=== PATIENT | female | born 1985 | race American Indian/Alaskan Native ===

== ENCOUNTER 2019-12-14 06:23 | Observation (INO) | payer OTHER ==
[2019-12-14] MEDS ORDERED: LORazepam 2 MG/ML VIAL IV ONE (06:47)
[2019-12-14] MEDS ORDERED: LORazepam 2 MG/ML VIAL ONE (06:47)
--- NOTE | 2019-12-14 07:27 | Cat Scan Report ---
CT head/brain without contrast. INDICATION: Stroke symptoms. TECHNIQUE: All CT scans at this location are performed using the following dose modulation technique: Automated exposure control. CONTRAST: None. COMPARISON: None available. FINDINGS: The ventricular system is appropriate in size and configuration without midline shift. Nega tive for acute stroke, mass or hemorrhage. There are mild changes of chronic small vessel ischemia. C hronic white matter infarcts are seen at the external capsule and madrid radiata on the left. Imaged portions of the paranasal sinuses are clear. IMPRESSION: 1. No acute abnormality. 2. Chronic left-sided white matter infarcts. CODE STROKE: Time of Communication (ELECTRIC METER TESTER SHOP/CDT): 6:20 AM Central standard time Licensed Practitioner Receiving Report: Dr. Jessica Signer Name: Kiet Barber MD Signed: 12/14/2019 7:23 AM Workstation Name: [id number]
--- NOTE | 2019-12-14 07:44 | Consultation ---
History of Present Illness - Reason for Consult Consult date: 12/14/19 Requesting physician: RASHEL ANGEL - History of Present Illness [facility] Tele[facility]urology Consult Services Date of Service: 12/14/2019 06:47:54 Impression: Rule Out Acute Ischemic Stroke hyperglycemia, recent seizure and hypertensive emergency r/o lacunar stroke Comments/Sign-Out: 34yo W w pmh of htn, dm, hx of epilepsy, hx of stroke (unknown if on asa, plavix or blood thinners) who presents with slurred speech and seizure activity (witnessed) for which she received ativan 2mg. Glucose > 500. Slurred speech in the setting of hyperglycemia, recent seizure and hypertensive emergency r/o lacunar stroke Mechanism of Stroke: Possible Thromboembolic Possible Cardioembolic Small Vessel Disease Watershed Infarct Not Clear Metrics: Last Known Well: 12/12/2019 00:00:00 [facility] Notification Time: 12/14/2019 06:47:30 Arrival Time: 12/14/2019 06:35:00 Stamp Time: 12/14/2019 06:47:54 Time First Login Attempt: 12/14/2019 06:53:16 Video Start Time: 12/14/2019 06:53:16 Symptoms: slurred speech NIHSS Start Assessment Time: 12/14/2019 07:24:00 Patient is not a candidate for Alteplase/Activase. Patient was not deemed candidate for Alteplase/Activase thrombolytics because of Last Well Known Above 4.5 Hours. Video End Time: 12/14/2019 07:38:24 CT head showed no acute hemorrhage or acute core infarct. CT head was reviewed and results were: chronic L CR/ stroke Clinical Presentation is not Suggestive of Large Vessel Occlusive Disease ED Physician notified of diagnostic impression and management plan on 12/14/2019 07:39:05 Our recommendations are outlined below. Recommendations: Activate Stroke Protocol Admission/Order Set Stroke/Telemetry Floor Neuro Checks Bedside Swallow Eval DVT Prophylaxis IV Fluids, Normal Saline Head of Bed 30 Degrees Euglycemia and Avoid Hyperthermia (PRN Acetaminophen) Antiplatelet Therapy Recommended Initiate Aspirin 325 MG Daily Routine Consultation with Inhouse Neurology for Follow up Care Sign Out: Discussed with Emergency Department Provider History of Present Illness: Patient is a 34 year old Female. Patient was brought by private transportation with symptoms of slurred speech 34yo W w pmh of htn, dm, hx of epilepsy, hx of stroke (unknown if on asa, plavix or blood thinners) who presents with slurred speech and seizure activity (witnessed) for which she received ativan 2mg. She was last normal on Sun when she developed slurred speech. Past Medical History: Hypertension Stroke Examination: 1A: Level of Consciousness - Requires repeated stimulation to arouse + 2 1B: Ask Month and Age - Could Not Answer Either Question Correctly + 2 1C: Blink Eyes & Squeeze Hands - Performs 1 Task + 1 2: Test Horizontal Extraocular Movements - Normal + 0 3: Test Visual Patel - Bilateral Hemianopia + 3 4: Test Facial Palsy (Use Grimace if Obtunded) - Minor paralysis (flat nasolabial fold, smile asymmetry) + 1 5A: Test Left Arm Motor Drift - Drift, but doesn't hit bed + 1 5B: Test Right Arm Motor Drift - Drift, but doesn't hit bed + 1 6A: Test Left Leg Motor Drift - Drift, but doesn't hit bed + 1 6B: Test Right Leg Motor Drift - Some Effort Against Congers + 2 7: Test Limb Ataxia (FNF/Heel-Marsh) - No Ataxia + 0 8: Test Sensation - Mild-Moderate Loss: Less Sharp/More Dull + 1 9: Test Language/Aphasia - Normal; No aphasia + 0 10: Test Dysarthria - Severe Dysarthria: Unintelligble Slurring or Out of Proportion to Aphasia + 2 11: Test Extinction/Inattention - No abnormality + 0 NIHSS Score: 17 Patient/Family was informed the Neurology Consult would happen via TeleHealth consult by way of interactive audio and video telecommunications and consented to receiving care in this manner. Due to the immediate potential for life-threatening deterioration due to underlying acute neurologic illness, I spent 35 minutes providing critical care. This time includes time for face to face visit via telemedicine, review of medical records, imaging studies and discussion of findings with providers, the patient and/or family. Dr Cata Lopez [facility] Case [id number] Medications and Allergies Allergies Allergy/AdvReac Type Severity Reaction Status Date / Time amoxicillin Allergy Itching Verified 12/14/19 06:44 Home Medications Medication Instructions Recorded Confirmed Last Taken Type Aspirin EC 325 mg PO DAILY 12/14/19 12/14/19 Unknown History HCTZ 25 mg PO DAILY 12/14/19 12/14/19 Unknown History amLODIPine 10 mg PO DAILY 12/14/19 12/14/19 Unknown History hydrALAZINE 50 mg PO TID 12/14/19 12/14/19 Unknown History lisinopriL 20 mg PO DAILY 12/14/19 12/14/19 Unknown History Exam - Constitutional Vitals: Temp Pulse Resp BP Pulse Ox 98.8 F 92 H 18 199/123 99 12/14/19 06:27 12/14/19 06:27 12/14/19 06:27 12/14/19 06:27 12/14/19 06:27 Results - Labs Labs: Abnormal lab results 12/14/19 Range/Units 07:05 POC Glucose > 500 H (70-105)
[2019-12-14 07:45] LABS: Basophils # (Auto) 0.1 K/mm3 (0.0-0.1); Basophils % (Auto) 1.1 % (0.0-1.8); Eosinophils # (Auto) 0.1 K/mm3 (0.0-0.4); Eosinophils % (Auto) 2.6 % (0.0-4.3); Hematocrit 33.1 % (30.3-42.9); Hemoglobin 10.6 gm/dl (10.1-14.3); Lymphocytes # (Auto) 1.4 K/mm3 (1.2-5.4); Lymphocytes % (Auto) 23.5 % (13.4-35.0); Mean Corpuscular HGB Conc 32 % (30-34); Mean Corpuscular Volume 79 fl (79-97); Monocytes # (Auto) 0.5 K/mm3 (0.0-0.8); Monocytes % (Auto) 8.3 % (0.0-7.3); Platelet Count 225 K/mm3 (140-440); Red Blood Count 4.19 M/mm3 (3.65-5.03); Red Cell Distribution Width 15.9 % (13.2-15.2)
--- NOTE | 2019-12-14 07:56 | XRay Report ---
CHEST 1 VIEW INDICATION: Stroke. COMPARISON: None. FINDINGS: Support devices: None. Heart: Mild cardiac enlargement. Lungs/Pleura: Lung volumes are mildly diminished. Additional findings: None. IMPRESSION: Cardiomegaly with mildly diminished lung volumes. Signer Name: Kiet Barber MD Signed: 12/14/2019 7:52 AM Workstation Name: [id number]
[2019-12-14 07:57] LABS: Creatine Kinase MB 1.5 ng/mL (0.0-4.0)
[2019-12-14 07:58] LABS: BUN/Creatinine Ratio 11; Blood Urea Nitrogen 18 mg/dL (7-17); Calcium 9.5 mg/dL (8.4-10.2); Hemolysis Index 7; INR 1.08 (0.87-1.13); Partial Thromboplastin Time 25.1 Sec. (24.2-36.6); Thrombin Time 16.4 Sec. (15.1-19.6)
[2019-12-14] MEDS ORDERED: INSULIN REGULAR, HUMAN 100 UNIT/ML 3ML VIAL IV ONE (08:21)
[2019-12-14] MEDS ORDERED: SODIUM CHLORIDE 0.9% 1000 ML 1,000 ML IV ONE (08:22)
--- NOTE | 2019-12-14 08:25 | Emergency Department Report ---
ED Neuro Deficit HPI - General Chief Complaint: Altered Mental Status Stated Complaint: AMS Time Seen by Provider: 12/14/19 06:46 Source: patient Mode of arrival: Ambulatory Limitations: No Limitations - History of Present Illness Initial Comments: Patient is 34 years old female with history of hypertension, diabetes, CVA and seizure. Patient brought to the emergency room by her for evaluation of altered mental status and slurred speech. Patient stated that symptoms started Sunday night but is getting worse now. Upon evaluation in the emergency room patient started seizing. Patient given 2 mg of Ativan and reported her seizure. Code stroke initiated and patient moved to CT for stat CT brain. Stroke tele-neurology consulted and patient examined by Dr. Lopez, she advised patient is not a TPA candidate or thrombectomy candidate however she advised to admit the patient for stroke work-up. -: Sudden, days(s) (12/12/2019) Location: speech Presenting Symptoms: Present: Unable to Speak Clearly Place: home Context: sudden onset - Related Data Home Medications: Home Medications Medication Instructions Recorded Confirmed Last Taken Aspirin EC 325 mg PO DAILY 12/14/19 12/14/19 Unknown HCTZ 25 mg PO DAILY 12/14/19 12/14/19 Unknown amLODIPine 10 mg PO DAILY 12/14/19 12/14/19 Unknown hydrALAZINE 50 mg PO TID 12/14/19 12/14/19 Unknown lisinopriL 20 mg PO DAILY 12/14/19 12/14/19 Unknown Allergies/Adverse Reactions: Allergies Allergy/AdvReac Type Severity Reaction Status Date / Time amoxicillin Allergy Itching Verified 12/14/19 06:44 ED Review of Systems ROS: Stated complaint: AMS Other details as noted in HPI Comment: All other systems reviewed and negative Constitutional: denies: chills, fever Respiratory: denies: cough, shortness of breath, SOB with exertion Cardiovascular: denies: chest pain, palpitations Gastrointestinal: denies: abdominal pain, nausea, vomiting, diarrhea, constipation, hematemesis, melena, hematochezia Musculoskeletal: denies: back pain Neurological: confusion. denies: headache, weakness, numbness, paresthesias, abnormal gait ED Past Medical Hx - Past Medical History Previous Medical History?: Yes Hx Hypertension: Yes Hx CVA: Yes Hx Diabetes: Yes Hx Seizures: Yes - Surgical History Past Surgical History?: Yes Additional Surgical History: - Social History Smoking Status: Never Smoker Substance Use Type: None - Medications Home Medications: Home Medications Medication Instructions Recorded Confirmed Last Taken Type Aspirin EC 325 mg PO DAILY 12/14/19 12/14/19 Unknown History HCTZ 25 mg PO DAILY 12/14/19 12/14/19 Unknown History amLODIPine 10 mg PO DAILY 12/14/19 12/14/19 Unknown History hydrALAZINE 50 mg PO TID 12/14/19 12/14/19 Unknown History lisinopriL 20 mg PO DAILY 12/14/19 12/14/19 Unknown History ED Neuro Physical Exam - General Limitations: No Limitations General appearance: alert, in no apparent distress Suspected Stroke: Yes - Head Head exam: Present: atraumatic, normocephalic, normal inspection - Eye Eye exam: Present: normal appearance, PERRL - ENT ENT exam: Present: mucous membranes dry - Neck Neck exam: Present: normal inspection, full ROM. Absent: tenderness, meningismus, lymphadenopathy, thyromegaly - Respiratory Respiratory exam: Present: normal lung sounds bilaterally - Cardiovascular Cardiovascular Exam: Present: regular rate, normal rhythm, normal heart sounds - GI/Abdominal GI/Abdominal exam: Present: soft, normal bowel sounds. Absent: distended, t enderness, guarding, rebound, rigid, organomegaly, mass, bruit, pulsatile mass, hernia - Extremities Exam Extremities exam: Present: normal inspection, full ROM, normal capillary refill - Back Exam Back exam: Present: normal inspection, full ROM. Absent: CVA tenderness (R), CVA tenderness (L) - Neurological Exam Neurological exam: Present: alert, altered - NIHSS Assessment Interval: Baseline 1a. Level of Consciousness: arousable/minor stimuli 1b. LOC Questions: answers no questions correctly 1c. LOC Commands: performs no tasks correctly 2. Best Gaze: normal 3. Visual: bilateral hemianopia 4. Facial Palsy: minor paralysis 5b. Motor Arm Right: drift 5a. Motor Arm Left: drift 6a. Motor Leg Left: drift 6b. Motor Leg Right: drift 7. Limb Ataxia: absent 8. Sensory: coma/unresponsive 9. Best Language: mild/moderate aphasia 10. Dysarthria: mild/moderate dysarthria 11. Extinction/Inattention: no abnormality Total Score: 17 Stroke Severity: Moderate to Severe Stroke - Skin Skin exam: Present: warm, intact, normal color ED Course Vital Signs 12/14/19 12/14/19 12/14/19 06:27 07:00 08:04 Temperature 98.8 F Pulse Rate 92 H 80 67 Respiratory 18 20 17 Rate Blood Pressure 199/123 Blood Pressure 165/104 [Left] O2 Sat by Pulse 99 99 100 Oximetry 12/14/19 12/14/19 12/14/19 08:15 08:30 08:45 Temperature Pulse Rate 71 62 68 Respiratory 17 19 21 Rate Blood Pressure 149/94 151/107 Blood Pressure [Left] O2 Sat by Pulse 98 100 100 Oximetry 12/14/19 12/14/19 12/14/19 08:46 09:01 09:15 Temperature Pulse Rate 76 66 Respiratory 18 15 19 Rate Blood Pressure 187/109 187/109 Blood Pressure [Left] O2 Sat by Pulse 99 100 100 Oximetry 12/14/19 12/14/19 12/14/19 09:31 09:45 10:01 Temperature Pulse Rate 61 83 62 Respiratory 18 14 18 Rate Blood Pressure 157/95 157/95 153/102 Blood Pressure [Left] O2 Sat by Pulse 91 100 100 Oximetry - Lab Data Result diagrams: 12/14/19 07:18 12/14/19 07:18 Lab Results 12/14/19 12/14/19 12/14/19 Range/Units 07:05 07:18 07:18 WBC 5.8 (4.5-11.0) K/mm3 RBC 4.19 (3.65-5.03) M/mm3 Hgb 10.6 (10.1-14.3) gm/dl Hct 33.1 (30.3-42.9) % MCV 79 (79-97) fl MCH 25 L (28-32) pg MCHC 32 (30-34) % RDW 15.9 H (13.2-15.2) % Plt Count 225 (140-440) K/mm3 Lymph % (Auto) 23.5 (13.4-35.0) % [place] % (Auto) 8.3 H (0.0-7.3) % Eos % (Auto) 2.6 (0.0-4.3) % Baso % (Auto) 1.1 (0.0-1.8) % Lymph # 1.4 (1.2-5.4) K/mm3 [place] # 0.5 (0.0-0.8) K/mm3 Eos # 0.1 (0.0-0.4) K/mm3 Baso # 0.1 (0.0-0.1) K/mm3 Seg Neutrophils % 64.5 (40.0-70.0) % Seg Neutrophils # 3.8 (1.8-7.7) K/mm3 PT 14.1 (12.2-14.9) Sec. INR 1.08 (0.87-1.13) APTT 25.1 (24.2-36.6) Sec. Thrombin Time 16.4 (15.1-19.6) Sec. Sodium (137-145) mmol/L Potassium (3.6-5.0) mmol/L Chloride (98-107) mmol/L Carbon Dioxide (22-30) mmol/L Anion Gap mmol/L BUN (7-17) mg/dL Creatinine (0.6-1.2) mg/dL Estimated GFR ml/min BUN/Creatinine Ratio % Glucose (65-100) mg/dL POC Glucose > 500 H (70-105) Calcium (8.4-10.2) mg/dL Total Creatine Kinase (30-135) units/L CK-MB (CK-2) (0.0-4.0) ng/mL CK-MB (CK-2) Rel Index (0-4) Troponin T (0.00-0.029) ng/mL Plasma/Serum Alcohol (0-0.07) % 12/14/19 12/14/19 12/14/19 Range/Units 07:18 07:18 09:52 WBC (4.5-11.0) K/mm3 RBC (3.65-5.03) M/mm3 Hgb (10.1-14.3) gm/dl Hct (30.3-42.9) % MCV (79-97) fl MCH (28-32) pg MCHC (30-34) % RDW (13.2-15.2) % Plt Count (140-440) K/mm3 Lymph % (Auto) (13.4-35.0) % [place] % (Auto) (0.0-7.3) % Eos % (Auto) (0.0-4.3) % Baso % (Auto) (0.0-1.8) % Lymph # (1.2-5.4) K/mm3 [place] # (0.0-0.8) K/mm3 Eos # (0.0-0.4) K/mm3 Baso # (0.0-0.1) K/mm3 Seg Neutrophils % (40.0-70.0) % Seg Neutrophils # (1.8-7.7) K/mm3 PT (12.2-14.9) Sec. INR (0.87-1.13) APTT (24.2-36.6) Sec. Thrombin Time (15.1-19.6) Sec. Sodium 129 L (137-145) mmol/L Potassium 3.5 L (3.6-5.0) mmol/L Chloride 91.9 L (98-107) mmol/L Carbon Dioxide 19 L (22-30) mmol/L Anion Gap 22 mmol/L BUN 18 H (7-17) mg/dL Creatinine 1.6 H (0.6-1.2) mg/dL Estimated GFR 37 ml/min BUN/Creatinine Ratio 11 % Glucose 751 H* (65-100) mg/dL POC Glucose > 500 H (70-105) Calcium 9.5 (8.4-10.2) mg/dL Total Creatine Kinase 297 H (30-135) units/L CK-MB (CK-2) 1.5 (0.0-4.0) ng/mL CK-MB (CK-2) Rel Index 0.5 (0-4) Troponin T < 0.010 (0.00-0.029) ng/mL Plasma/Serum Alcohol < 0.01 (0-0.07) % - EKG Data -: EKG Interpreted by In EKG shows normal: sinus rhythm Rate: normal Interpretation: no acute changes - Radiology Data Radiology results: report reviewed - Medical Decision Making Patient is 34 years old female with history of hypertension, diabetes, CVA and seizure. Patient brought to the emergency room by her for evaluation of altered mental status and slurred speech. Patient stated that symptoms started Oziel night but is getting worse now. Upon evaluation in the em ergency room patient started seizing. Patient given 2 mg of Ativan and reported her seizure. Code stroke initiated and patient moved to CT for stat CT brain. Stroke tele-neurology consulted and patient examined by Dr. Lopez, she advised patient is not a TPA candidate or thrombectomy candidate however she advised to admit the patient for stroke work-up. No seizure activity is observed after 2 mg of Ativan. Labs reviewed and showed a blood glucose of 750 with anion gap of 22. Patient started on normal saline and insulin. I discussed the patient with Dr. Barreto, he advised to admit the patient to Dr. Escamilla. Critical Care Time: Yes Critical care time in (mins) excluding proc time.: 30 Critical care attestation.: If time is entered above; I have spent that time in minutes in the direct care of this critically ill patient, excluding procedure time. ED Disposition Clinical Impression: CVA (cerebral vascular accident), Seizure, Acute hyperglycemia Disposition: -09 OP ADMIT IP TO THIS HOSP Is pt being admited?: Yes Condition: Stable
[2019-12-14] MEDS ORDERED: levETIRAcetam 1000 MG/NS 0.75% 1,000 MG/100 ML BAG IV ONE (09:20)
[2019-12-14 10:52] LABS: Bacteria,Urine 1+ /HPF (Negative); Bilirubin,Urine NEG (Negative); Blood,Urine LG (Negative); Color,Urine Straw (Yellow); Mucus,Urine FEW /HPF; Protein,Urine <15 mg/dL mg/dL (Negative); Urobilinogen,Urine < 2.0 mg/dL (<2.0)
[2019-12-14 10:55] LABS: RBC,Urine > 6.0 /HPF (0.0-6.0)
[2019-12-14 10:59] LABS: Amphetamine Screen,Urine PRESUMPTIVE NEGATIVE; Benzodiazepines Screen,Urine PRESUMPTIVE NEGATIVE; Cannabinoid Screen,Urine PRESUMPTIVE NEGATIVE; Cocaine Screen,Urine PRESUMPTIVE NEGATIVE; Methadone Screen,Urine PRESUMPTIVE NEGATIVE; Opiate Screen,Urine PRESUMPTIVE NEGATIVE
[2019-12-14 12:03] LABS: Calcium 9.3 mg/dL (8.4-10.2)
[2019-12-14] MEDS: INSULIN REGULAR, HUMAN 100 UNITS in SODIUM CHLORIDE 0.9% 99 ML IV SCH (12:31)
--- NOTE | 2019-12-14 13:11 | History and Physical Report ---
History of Present Illness Date of examination: 12/14/19 Date of admission: 12/14/19 10:08 Chief complaint: Slurred speech and weakness seizure, very high blood sugars History of present illness: 34 years old female patient with significant past medical history of h ypertension, diabetes, CVA and seizure. Patient brought to the emergency room by her for evaluation of altered mental status and slurred speech. Patient stated that symptoms started Sunday night but is getting worse now. Upon evaluation in the emergency room patient started seizing. Patient given 2 mg of Ativan and with improvement of seizures code stroke initiated and patient moved to CT for stat CT brain. Stroke tele- neurology consulted and patient examined by Dr. Lopez, she advised patient is not a TPA candidate or thrombectomy candidate however she advised to admit the patient for stroke work-up. Patient had history of twitching the left face and drooling on Sunday patient went to [facility] however left AGAINST MEDICAL ADVICE Patient denied any headache or dizziness, complains of generalized weakness Initial work-up in the emergency room CT scan No acute abnormality, chronic left-sided white matter infarcts Patient received loading dose of Keppra in the ER Denies chest pain or shortness of breath Denies fever, or any sick contacts Denies nausea vomiting or abdominal pain Patient initial work-up is consistent with very high blood sugars of more than 700, and hyperosmolar hyperglycemia Patient received IV insulin, with very minimal improvement. Patient was started on insulin drip per protocol and aggressive IV hydration Closely monitor the electrolytes and corrected as needed Past History Past Medical History: hypertension, seizures, stroke Past Surgical History: Social history: denies: smoking, alcohol abuse, prescription drug abuse Family history: no significant family history Medications and Allergies Allergies Allergy/AdvReac Type Severity Reaction Status Date / Time amoxicillin Allergy Itching Verified 12/14/19 06:44 Home Medications Medication Instructions Recorded Confirmed Last Taken Type Aspirin EC 325 mg PO DAILY 12/14/19 12/14/19 Unknown History HCTZ 25 mg PO DAILY 12/14/19 12/14/19 Unknown History amLODIPine 10 mg PO DAILY 12/14/19 12/14/19 Unknown History hydrALAZINE 50 mg PO TID 12/14/19 12/14/19 Unknown History lisinopriL 20 mg PO DAILY 12/14/19 12/14/19 Unknown History Active Meds: Active Medications Insulin Human Regular 100 (units/ Sodium Chloride) 100 mls @ 1 mls/hr IV TITR CRUZITO; Protocol Last Admin: 12/14/19 12:31 Dose: 8 units/hr, 8 mls/hr Documented by: Review of Systems Constitutional: weakness, no weight loss, no weight gain, no fever, no chills Ears, nose, mouth and throat: no nasal congestion, no nasal discharge Cardiovascular: no chest pain, no orthopnea, no palpitations, no lightheadedness, no shortness of breath Respiratory: no cough, no shortness of breath Gastrointestinal: no abdominal pain, no nausea, no vomiting Genitourinary Female: no pelvic pain, no dysuria Musculoskeletal: no myalgias, no arthritis Integumentary: no rash, no lesions Neurological: weakness, seizures, other (Twitching left face) Psychiatric: no anxiety, no depression Endocrine: no cold intolerance, no heat intolerance, no polyphagia, no polydipsia, no polyuria Hematologic/Lymphatic: no easy bruising, no easy bleeding Allergic/Immunologic: no urticaria, no allergic rhinitis Exam - Constitutional Vitals: Temp Pulse Resp BP Pulse Ox 98.8 F 65 19 153/102 99 12/14/19 06:27 12/14/19 10:45 12/14/19 10:45 12/14/19 10:45 12/14/19 10:45 General appearance: Present: no acute distress, well-nourished - EENT Eyes: Present: PERRL, EOM intact - Neck Neck: Present: supple, enlarged thyroid - Respiratory Respiratory effort: normal Respiratory: bilateral: diminished, negative: rales, rhonchi, wheezing - Cardiovascular Rhythm: regular Heart Sounds: Present: S1 & S2 - Extremities Extremities: no ischemia, No edema - Abdominal General gastrointestinal: Present: soft, non-tender, non-distended, normal bowel sounds - Integumentary Integumentary: Present: clear, warm - Musculoskeletal Musculoskeletal: strength equal bilaterally, generalized weakness - Psychiatric Psychiatric: appropriate mood/affect, cooperative - Neurologic Neurologic: moves all extremities HEART Score - HEART Score Troponin: Troponin T < 0.010 ng/mL (0.00-0.029) 12/14/19 07:18 Results - Labs CBC & Chem 7: 12/14/19 07:18 12/14/19 16:58 Labs: Abnormal lab results 12/14/19 12/14/19 12/14/19 Range/Units 07:05 07:18 07:18 MCH 25 L (28-32) pg RDW 15.9 H (13.2-15.2) % [place] % (Auto) 8.3 H (0.0-7.3) % Sodium 129 L (137-145) mmol/L Potassium 3.5 L (3.6-5.0) mmol/L Chloride 91.9 L (98-107) mmol/L Carbon Dioxide 19 L (22-30) mmol/L BUN 18 H (7-17) mg/dL Creatinine 1.6 H (0.6-1.2) mg/dL Glucose 751 H* (65-100) mg/dL POC Glucose > 500 H (70-105) Phosphorus (2.5-4.5) mg/dL Total Creatine Kinase 297 H (30-135) units/L 12/14/19 12/14/19 12/14/19 Range/Units 09:52 11:00 11:29 MCH (28-32) pg RDW (13.2-15.2) % [place] % (Auto) (0.0-7.3) % Sodium (137-145) mmol/L Potassium (3.6-5.0) mmol/L Chloride (98-107) mmol/L Carbon Dioxide (22-30) mmol/L BUN (7-17) mg/dL Creatinine (0.6-1.2) mg/dL Glucose 494 H (65-100) mg/dL POC Glucose > 500 H (70-105) Phosphorus 1.90 L (2.5-4.5) mg/dL Total Creatine Kinase (30-135) units/L 12/14/19 Range/Units 11:29 MCH (28-32) pg RDW (13.2-15.2) % [place] % (Auto) (0.0-7.3) % Sodium 136 L D (137-145) mmol/L Potassium (3.6-5.0) mmol/L Chloride (98-107) mmol/L Carbon Dioxide 20 L (22-30) mmol/L BUN (7-17) mg/dL Creatinine 1.5 H (0.6-1.2) mg/dL Glucose 463 H (65-100) mg/dL POC Glucose (70-105) Phosphorus (2.5-4.5) mg/dL Total Creatine Kinase (30-135) units/L Assessment and Plan --Seizures; new onset Patient received loading dose of Keppra Keppra 750 twice a day, IV Ativan as needed for seizures Seizure precautions, neuro work-up MRI brain, EEG, Neurology consult Do not drive --Possible acute CVA; Telemetry neurologist evaluated the patient, not a candidate for TPA Neuro work-up in progress, CT head without contrast no acute abnormality MRI brain, CTA head, CTA neck, echocardiogram PT OT, rehab, discharge planning Lipid panel, Aspirin and statin Permissive hypertension per protocol in-house neurology consult on Sunday Telemetry neurologist as needed --Hyperosmolar hyperglycemia/DKA Insulin drip per protocol, aggressive IV hydration Check hemoglobin A1c, follow electrolytes and adjust Diabetic education, diabetic diet education DC planning with home health nurse for disease monitoring --Hypokalemia; replace per protocol Monitor electrolytes --Acute kidney injury; Secondary to ATN and vasomotor nephropathy Gentle hydration closely monitor renal function Avoid nephrotoxins, nephrology consult if needed --New onset type 2 diabetes mellitus; Currently patient is on insulin drip Accu-Chek sliding scale coverage ADA diet We will transition to long-acting insulin when blood sugars are reasonable level. --DVT prophylaxis; Lovenox Closely monitor patient and adjust management as needed Plan of care reviewed with the patient and her nurse Admitted to ICU, Critical care consult. Critical care time 45 minutes. The high probability of a clinically significant, sudden or life threatening deterioration of the [Renal, endocrine, metabolic, [employer]] system(s) required my full and direct attention, intervention and personal management. The aggregate critical care time was [45] minutes. This time is in addition to time spent performing reported procedures but includes the following: [x] Data Review and interpretation [x] Patient assessment and monitoring of vital signs [x] Documentation
[2019-12-14] MEDS ORDERED: LORazepam 2 MG/ML VIAL IV PRN (13:12)
[2019-12-14] MEDS ORDERED: POTASSIUM PHOSPHATE 30 MMOL in SODIUM CHLORIDE 0.9% 500 ML 500 ML IV ONE (13:13)
[2019-12-14 15:02] LABS: Calcium 9.4 mg/dL (8.4-10.2)
[2019-12-14] MEDS ORDERED: POTASSIUM CHLORIDE ER 20 MEQ TAB PO ONE ×2 (15:23→20:07)
[2019-12-14 17:27] LABS: Calcium 9.3 mg/dL (8.4-10.2)
[2019-12-14 20:46] LABS: BUN/Creatinine Ratio 13; Blood Urea Nitrogen 16 mg/dL (7-17); Calcium 9.2 mg/dL (8.4-10.2); Hemolysis Index 4
[2019-12-14] MEDS: SODIUM CHLORIDE 0.9% 1000 ML 1,000 ML IV SCH (21:21)
[2019-12-14] MEDS ORDERED: D5W/0.45% NACL/KCL 20 MEQ 20 MEQ/1,000 ML BAG IV SCH (22:00)
[2019-12-14] MEDS: levETIRAcetam 750 MG in DEXTROSE 5% IN WATER 100 ML IV SCH (22:20)
[2019-12-15] MEDS: INSULIN REGULAR, HUMAN 100 UNITS in SODIUM CHLORIDE 0.9% 99 ML IV SCH (02:00)
[2019-12-15 04:00] LABS: BUN/Creatinine Ratio 14; Blood Urea Nitrogen 15 mg/dL (7-17); Hemolysis Index 0
[2019-12-15 04:03] LABS: Chol/HDL Ratio 6.11 %
[2019-12-15] MEDS ORDERED: POTASSIUM CHLORIDE ER 20 MEQ TAB PO NR (07:35)
--- NOTE | 2019-12-15 09:10 | Vascular Lab Report ---
BILATERAL CAROTID DOPPLER ULTRASOUND INDICATION : Acute CVA TECHNIQUE: Grayscale and color Doppler imaging performed through the neck. COMPARISON: None FINDINGS: Right: There is no significant atherosclerotic disease. Peak systolic velocity in the CCA is 62 cm/ s with end-diastolic velocity of 20 cm/s. Peak systolic velocity in the proximal ICA is 90 cm/s with end-diastolic velocity of 21 cm/s. ICA to CCA ratio is less than 2. There is antegrade flow in the E CA and the vertebral artery. Left: There is no significant atherosclerotic disease. Peak systolic velocity in the CCA is 78 cm/s w ith end-diastolic velocity of 23 cm/s. Peak systolic velocity in the proximal ICA is 114 cm/s with en d-diastolic velocity of 48 cm/s. ICA to CCA ratio is less than 2. There is antegrade flow in the ECA and the vertebral artery. IMPRESSION: No hemodynamically significant stenosis by NASCET criteria. Doppler velocities indicate l ess than 50% luminal narrowing bilaterally. Signer Name: David Randhawa Jr, MD Signed: 12/15/2019 9:06 AM Workstation Name: [id number]
[2019-12-15] MEDS: levETIRAcetam 750 MG in DEXTROSE 5% IN WATER 100 ML IV SCH (09:38)
[2019-12-15] MEDS: INSULIN NPH/REGULAR 70/30 INJ SUB-Q SCH ×3 (09:38→22:07)
[2019-12-15] MEDS ORDERED: ENOXAPARIN 40 MG/0.4 ML INJ SUB-Q ONE (09:59)
[2019-12-15] MEDS ORDERED: ASPIRIN EC 325 MG TAB PO ONE (10:00)
[2019-12-15] MEDS ORDERED: POTASSIUM CHLORIDE ER 20 MEQ TAB PO ONE ×2 (10:00→20:02)
[2019-12-15] MEDS ORDERED: ENOXAPARIN 30 MG/0.3 ML INJ SUB-Q SCH (10:00)
[2019-12-15] MEDS: ASPIRIN EC 325 MG TAB PO SCH (10:02)
[2019-12-15] MEDS: ENOXAPARIN 40 MG/0.4 ML INJ SUB-Q SCH (10:02)
[2019-12-15] MEDS ORDERED: SODIUM CHLORIDE 0.9% 1000 ML 1,000 ML ONE (10:25)
[2019-12-15] MEDS: SODIUM CHLORIDE 0.9% 1000 ML 1,000 ML IV SCH (10:40)
[2019-12-15] MEDS ORDERED: cloNIDine 0.1 MG TAB ONE (12:26)
--- NOTE | 2019-12-15 12:34 | Magnetic Resonance Report ---
MR brain wo con INDICATION / CLINICAL INFORMATION: 34 years Female; MAIN. TECHNIQUE: Multiplanar, multisequence MR images of the brain were obtained. COMPARISON: CT-12/14/2019 FINDINGS: BRAIN / INTRACRANIAL CONTENTS: Old, small to moderately sized hemorrhagic corpus striatal infarct see n anteriorly in the gangliocapsular region on the left. Multiple areas of decreased gradient echo T2 signal are seen in the gangliocapsular regions bilaterally, suggesting small, hemorrhagic lacunar inf arcts. More prominent finding is seen in the medial thalamic region on the left. These findings are w orrisome for microhemorrhages associated with hypertension, and clinical correlation is recommended. Similar type findings are seen in the inferior cerebellar hemispheres bilaterally, as well as the dwain s. Old branch PICA infarct is seen inferolaterally on the right. Otherwise, no acute hemorrhage, mass effect, midline shift, hydrocephalus, or acute, large territori al infarct. No chronic infarct or atrophy. There are moderate areas of increased signal intensity on FLAIR imaging in the white matter of the ce rebral hemispheres, as well as the gangliocapsular regions. Corpus callosal involvement noted. These are nonspecific findings and may be related to microangiopathy (hypertension, diabetes, atheroscleros is), given the distribution of findings. CRANIOCERVICAL JUNCTION: No significant abnormality. VASCULAR FLOW-VOIDS: No significant abnormality. ORBITS: No significant abnormality of visualized orbits. SINUSES / MASTOIDS: Mucous tension cyst seen in the inferior maxillary antrum on the right. ADDITIONAL FINDINGS: None. IMPRESSION: 1. No focal mass, hemorrhage, hydrocephalus, or acute ischemia. 2. Significant white matter disease with presumed microhemorrhages noted, as described above. Chronic hypertensive encephalopathy might be considered. Signer Name: Luis Ovalle MD, III Signed: 12/15/2019 12:29 PM Workstation Name: [id number]
[2019-12-15] MEDS: INSULIN LISPRO 100 UNIT/ML VIAL 3 mL SUB-Q SCH ×3 (12:35→23:13)
--- NOTE | 2019-12-15 12:53 | Consultation ---
History of Present Illness Consult date: 12/15/19 Reason for Consult: change in mentation History of present illness: 34 years old female patient with significant past medical history of hypert ension, diabetes, CVA and seizure. Patient brought to the emergency room by her for evaluation of altered mental status and slurred speech. Patient stated that symptoms started Sunday night but is getting worse now. According to pt, she had first seizure in bed last night noted by her lasted may be one minute she denied tongue bitting or urinary incontince Upon evaluation in the emergency room patient started seizing again had a total of 4 seizure she was given 2 mg of Ativan and with improvement of seizures code stroke initiated and patient moved to CT for stat CT brain. Stroke tele- neurology consulted and patient examined by Dr. Lopez, she advised patient is not a TPA candidate or thrombectomy candidate however she advised to admit the patient for stroke work-up. Patient had history of twitching the left face and drooling on Sunday patient went to [facility] however left AGAINST MEDICAL ADVICE Patient denied any headache or dizziness, complains of generalized weakness Initial work-up in the emergency room CT scan No acute abnormality, chronic left -sided white matter infarcts Patient received loading dose of Keppra in the ER Denies chest pain or shortness of breath Denies fever, or any sick contacts Denies nausea vomiting or abdominal pain Patient initial work-up is consistent with very high blood sugars of more than 700, and hyperosmolar hyperglycemia Patient received IV insulin, with very minimal improvement. Patient was started on insulin drip per protocol and aggressive IV hydration Closely monitor the electrolytes and corrected as needed According to pt. she had hx of seizure when she was 15 ys old improved she was on Vimpat , no family hx of seizure , she denied hx of DM? According to her she had X 2 CVA in 2017 and left her with no weakness and in 2019 and she was left with mild left side weakness improved she denied being or on recreational drugs she is taking BP medications and ASA 81 mg daily Past History Past Medical History: hypertension, seizures at age 15 ys old , stroke 2017,2019 Past Surgical History: Social history: denies: smoking, alcohol abuse, prescription drug abuse Family history: no significant family history Medications and Allergies Allergies Allergy/AdvReac Type Severity Reaction Status Date / Time amoxicillin Allergy Itching Verified 12/14/19 06:44 Home Medications Medication Instructions Recorded Confirmed Last Taken Type Aspirin EC 325 mg PO DAILY 12/14/19 12/14/19 Unknown History HCTZ 25 mg PO DAILY 12/14/19 12/14/19 Unknown History amLODIPine 10 mg PO DAILY 12/14/19 12/14/19 Unknown History hydrALAZINE 50 mg PO TID 12/14/19 12/14/19 Unknown History lisinopriL 20 mg PO DAILY 12/14/19 12/14/19 Unknown History Active Meds: Active Medications Insulin Human Regular 100 (units/ Sodium Chloride) 100 mls @ 1 mls/hr IV TITR CRUZITO; Protocol Last Admin: 12/14/19 12:31 Dose: 8 units/hr, 8 mls/hr Documented by: Review of Systems Constitutional: weakness, no weight loss, no weight gain, no fever, no chills Ears, nose, mouth and throat: no nasal congestion, no nasal discharge Cardiovascular: no chest pain, no orthopnea, no palpitations, no lightheadedness, no shortness of breath Respiratory: no cough, no shortness of breath Gastrointestinal: no abdominal pain, no nausea, no vomiting Genitourinary Female: no pelvic pain, no dysuria Musculoskeletal: no myalgias, no arthritis Integumentary: no rash, no lesions Neurological: weakness, seizures, other (Twitching left face) Psychiatric: no anxiety, no depression Endocrine: no cold intolerance, no heat intolerance, no polyphagia, no polydipsia, no polyuria Hematologic/Lymphatic: no easy bruising, no easy bleeding Allergic/Immunologic: no urticaria, no allergic rhinitis Past History Past Medical History: hypertension, seizures, stroke Past Surgical History: Social history: denies: smoking, alcohol abuse, prescription drug abuse Family history: no significant family history Medications and Allergies Allergies Allergy/AdvReac Type Severity Reaction Status Date / Time amoxicillin Allergy Itching Verified 12/14/19 06:44 Home Medications Medication Instructions Recorded Confirmed Last Taken Type Aspirin EC 325 mg PO DAILY 12/14/19 12/14/19 Unknown History HCTZ 25 mg PO DAILY 12/14/19 12/14/19 Unknown History amLODIPine 10 mg PO DAILY 12/14/19 12/14/19 Unknown History hydrALAZINE 50 mg PO TID 12/14/19 12/14/19 Unknown History lisinopriL 20 mg PO DAILY 12/14/19 12/14/19 Unknown History Active Meds: Active Medications Aspirin (Ecotrin) 325 mg PO QDAY [facility] Last Admin: 12/15/19 10:02 Dose: 325 mg Documented by: Atorvastatin Calcium (Lipitor) 40 mg PO QHS [facility] Last Admin: 12/14/19 22:34 Dose: 40 mg Documented by: Clonidine HCl (Catapres) 0.1 mg PO Q4H ONE Stop: 12/15/19 13:06 Enoxaparin Sodium (Enoxaparin) 40 mg SUB-Q QDAY@1000 [facility] Last Admin: 12/15/19 10:02 Dose: 40 mg Documented by: Sodium Chloride (Nacl 0.9% 1000 Ml) 1,000 mls @ 100 mls/hr IV DIRECT [facility] Last Admin: 12/15/19 10:40 Dose: 100 mls/hr Documented by: Levetiracetam 750 mg/ Dextrose 107.5 mls @ 400 mls/hr IV Q12HR [facility] Last Admin: 12/15/19 09:38 Dose: 400 mls/hr Documented by: Potassium Chloride/Dextrose/Sod Cl (D5w/0.45% Nacl/Kcl 20 Meq) 20 meq in 1,000 mls @ 125 mls/hr IV DIRECT [facility] Last Admin: 12/14/19 22:21 Dose: 125 mls/hr Documented by: Insulin Human Isoph/Insulin Regular (Humulin 70/30) 8 unit SUB-Q BIDDIAB [facility] Last Admin: 12/15/19 09:38 Dose: 8 unit Documented by: Insulin Human Lispro (Humalog) 0 unit SUB-Q [facility]; Protocol Last Admin: 12/15/19 12:35 Dose: 3 unit Documented by: Lorazepam (Ativan) 2 mg IV Q1H PRN PRN Reason: Seizures Physical Examination - Vital Signs Vital Signs: Vital Signs Temp Pulse Resp BP Pulse Ox 98.8 F 92 H 18 199/123 99 12/14/19 06:27 12/14/19 06:27 12/14/19 06:27 12/14/19 06:27 12/14/19 06:27 - Constitutional General appearance: comfortable - Respiratory Respiratory: Present: chest non-tender - Cardiovascular Cardiovascular: Present: regular rate Extremities: Present: no peripheral edema bilatateraly, no clubbing, cyanosis, no inflammation - Gastrointestinal Gastrointestinal: Present: normoactive bowel sounds - Integumentary Integumentary: Present: normal - Neurologic Cranial nerve examination: intact Speech examination: intact Sensorimotor examination: intact Detailed motor examination: grossly full strength in Detailed sensory examination: intact - Psychiatric Psychiatric: Present: mood/affect appropriate Results - Laboratory Findings CBC and BMP: 12/14/19 07:18 12/15/19 13:09 Abnormal Lab Findings: Abnormal Labs 12/14/19 12/14/19 12/14/19 07:05 07:18 07:18 MCH 25 L RDW 15.9 H [place] % (Auto) 8.3 H Sodium 129 L Potassium 3.5 L Chloride 91.9 L Carbon Dioxide 19 L BUN 18 H Creatinine 1.6 H Glucose 751 H* POC Glucose > 500 H Phosphorus Total Creatine Kinase 297 H Triglycerides HDL Cholesterol 12/14/19 12/14/19 12/14/19 09:52 11:00 11:29 MCH RDW [place] % (Auto) Sodium Potassium Chloride Carbon Dioxide BUN Creatinine Glucose 494 H POC Glucose > 500 H Phosphorus 1.90 L Total Creatine Kinase Triglycerides HDL Cholesterol 12/14/19 12/14/19 12/14/19 11:29 13:46 14:27 MCH RDW [place] % (Auto) Sodium 136 L D Potassium 3.3 L Chloride Carbon Dioxide 20 L 20 L BUN Creatinine 1.5 H 1.3 H Glucose 463 H 325 H POC Glucose 386 H Phosphorus Total Creatine Kinase Triglycerides HDL Cholesterol 12/14/19 12/14/19 12/14/19 16:58 20:06 20:31 MCH RDW [place] % (Auto) Sodium Potassium 3.3 L 2.9 L* Chloride Carbon Dioxide 20 L 21 L BUN Creatinine 1.3 H Glucose 272 H 279 H POC Glucose 274 H Phosphorus Total Creatine Kinase Triglycerides HDL Cholesterol 12/14/19 12/14/19 12/14/19 21:54 22:53 23:59 MCH RDW [place] % (Auto) Sodium Potassium Chloride Carbon Dioxide BUN Creatinine Glucose POC Glucose 232 H 199 H 237 H Phosphorus Total Creatine Kinase Triglycerides HDL Cholesterol 12/15/19 12/15/19 12/15/19 01:05 02:12 03:14 MCH RDW [place] % (Auto) Sodium Potassium Chloride Carbon Dioxide BUN Creatinine Glucose POC Glucose 229 H 242 H 229 H Phosphorus Total Creatine Kinase Triglycerides HDL Cholesterol 12/15/19 12/15/19 12/15/19 03:22 03:22 04:22 MCH RDW [place] % (Auto) Sodium Potassium 3.1 L Chloride Carbon Dioxide 21 L BUN Creatinine Glucose 220 H POC Glucose 196 H Phosphorus Total Creatine Kinase Triglycerides 345 H HDL Cholesterol 27 L 12/15/19 12/15/19 12/15/19 05:22 06:24 07:27 MCH RDW [place] % (Auto) Sodium Potassium Chloride Carbon Dioxide BUN Creatinine Glucose POC Glucose 191 H 192 H 190 H Phosphorus Total Creatine Kinase Triglycerides HDL Cholesterol 12/15/19 12/15/19 09:50 12:49 MCH RDW [place] % (Auto) Sodium Potassium Chloride Carbon Dioxide BUN Creatinine Glucose POC Glucose 213 H 248 H Phosphorus Total Creatine Kinase Triglycerides HDL Cholesterol Assessment and Plan 1-Seizures; recurrent ,she is with hx of seizure at age 15 was treated with vimpat , currently on no medication , no family hx of seizure -Patient received loading dose of Keppra -Keppra 750 twice a day, -IV Ativan as needed for seizures -Seizure precautions, -MRI brain is unremarkable -EEG is pending -Do not drive -She is not 2-Hx of CVA; -Telemetry neurologist evaluated the patient, not a candidate for TPA -Neuro work-up in progress, CT head ,MRI brain and us carotid are unremarkable -echocardiogram showed EF60-65%,LVH -PT OT, rehab, discharge planning Lipid panel,LDL#99 - Aspirin and statin 40 mg - hypertension control<140/80 -Telemetry neurologist as needed 3-Hyperosmolar hyperglycemia/DKA Insulin drip per protocol, aggressive IV hydration Check hemoglobin A1c, follow electrolytes and adjust Diabetic education, diabetic diet education DC planning with home health nurse for disease monitoring 4-Hypokalemia; replace per protocol Monitor electrolytes 5-Acute kidney injury; Secondary to ATN and vasomotor nephropathy Gentle hydration closely monitor renal function Avoid nephrotoxins, nephrology consult if needed 6-New onset type 2 diabetes mellitus; Currently patient is on insulin drip Accu-Chek sliding scale coverage ADA diet We will transition to long-acting insulin when blood sugars are reasonable level. 7-DVT prophylaxis; Lovenox PLAN 1-Keppra 750 bid po 2-EEG 3-ASA 81 mg daily 4-Statin 40 mg daily 5-Control BP 140/80 6- No driving 7- Neurology follow up in a month, for evaluation of seizure and CVA at young age!!! 8-DM control A1C #7 will follow as needed
[2019-12-15] MEDS ORDERED: cloNIDine 0.1 MG TAB PO ONE (13:05)
[2019-12-15 13:56] LABS: BUN/Creatinine Ratio 12; Blood Urea Nitrogen 12 mg/dL (7-17); Calcium 9.1 mg/dL (8.4-10.2); Hemolysis Index 5
[2019-12-15] MEDS ORDERED: hydrALAZINE 25 MG TAB PO ONE ×2 (17:39→17:42)
[2019-12-15] MEDS: hydrALAZINE 25 MG TAB PO SCH ×2 (17:58→22:07)
--- NOTE | 2019-12-15 18:40 | Progress Note ---
Assessment and Plan Assessment and plan: --Seizures; new onset s/p loading dose of Keppra Keppra 750 twice a day, IV Ativan as needed for seizures Seizure precautions, neuro work-up MRI brain, no acute findings Follow EEG, neurology evaluation noted and appreciated Do not drive --Possible acute CVA; not a candidate for TPA,per tel neuro Neuro work-up reviewed, neurology following PT OT, rehab, discharge planning Aspirin and statin, BP control Possible discharge in 1 to 2 days if stable --Hyperosmolar hyperglycemia/DKA Improved insulin drip discontinued Transition to long-acting insulin, ADA diet Check hemoglobin A1c, follow electrolytes and adjust Diabetic education, diabetic diet education DC planning with home health nurse for disease monitoring --Hypokalemia; replace per protocol Monitor electrolytes --Acute kidney injury; resolved Secondary to ATN and vasomotor nephropathy Resolved, plenty oral fluids --New onset type 2 diabetes mellitus; Currently patient is on insulin drip Accu-Chek sliding scale coverage ADA diet We will transition to long-acting insulin when blood sugars are reasonable level. Novolin 70/30, monitor blood sugars and adjust as needed --DVT prophylaxis; Lovenox Closely monitor patient and adjust management as needed Downgrade to medical floor The high probability of a clinically significant, sudden or life threatening deterioration of the [Renal, endocrine, metabolic, STRATEGIC DEBRIEFING OFFICER] system(s) required my full and direct attention, intervention and personal management. The aggregate critical care time was [32] minutes. This time is in addition to time spent performing reported procedures but inc ludes the following: [x] Data Review and interpretation [x] Patient assessment and monitoring of vital signs [x] Documentation History Interval history: I have seen and examined the patient at the bedside Patient's chart and medications reviewed Admitted with hyperosmolar hyperglycemia DKA/new onset seizures/possible CVA Patient feels slightly better No new episodes of seizures Vital signs noted Hospitalist Physical - Constitutional Vitals: Temp Pulse Resp BP Pulse Ox 99.1 F 101 H 20 217/124 100 12/15/19 17:34 12/15/19 17:34 12/15/19 17:34 12/15/19 17:34 12/15/19 17:34 General appearance: Present: no acute distress, well-nourished - EENT Eyes: Present: PERRL, EOM intact - Neck Neck: Present: supple, normal ROM - Respiratory Respiratory effort: normal Respiratory: bilateral: diminished, negative: rales, rhonchi, wheezing - Cardiovascular Rhythm: regular Heart Sounds: Present: S1 & S2 - Extremities Extremities: no ischemia, No edema - Abdominal General gastrointestinal: soft, non-tender, non-distended, normal bowel sounds - Integumentary Integumentary: Present: clear, warm - Psychiatric Psychiatric: appropriate mood/affect, cooperative - Neurologic Neurologic: moves all extremities HEART Score - HEART Score Troponin: Troponin T < 0.010 ng/mL (0.00-0.029) 12/14/19 07:18 Results - Labs CBC & Chem 7: 12/14/19 07:18 12/15/19 13:09 Labs: Laboratory Last Values WBC 5.8 K/mm3 (4.5-11.0) 12/14/19 07:18 RBC 4.19 M/mm3 (3.65-5.03) 12/14/19 07:18 Hgb 10.6 gm/dl (10.1-14.3) 12/14/19 07:18 Hct 33.1 % (30.3-42.9) 12/14/19 07:18 MCV 79 fl (79-97) 12/14/19 07:18 MCH 25 pg (28-32) L 12/14/19 07:18 MCHC 32 % (30-34) 12/14/19 07:18 RDW 15.9 % (13.2-15.2) H 12/14/19 07:18 Plt Count 225 K/mm3 (140-440) 12/14/19 07:18 Lymph % (Auto) 23.5 % (13.4-35.0) 12/14/19 07:18 [place] % (Auto) 8.3 % (0.0-7.3) H 12/14/19 07:18 Eos % (Auto) 2.6 % (0.0-4.3) 12/14/19 07:18 Baso % (Auto) 1.1 % (0.0-1.8) 12/14/19 07:18 Lymph # 1.4 K/mm3 (1.2-5.4) 12/14/19 07:18 [place] # 0.5 K/mm3 (0.0-0.8) 12/14/19 07:18 Eos # 0.1 K/mm3 (0.0-0.4) 12/14/19 07:18 Baso # 0.1 K/mm3 (0.0-0.1) 12/14/19 07:18 Seg Neutrophils % 64.5 % (40.0-70.0) 12/14/19 07:18 Seg Neutrophils # 3.8 K/mm3 (1.8-7.7) 12/14/19 07:18 PT 14.1 Sec. (12.2-14.9) 12/14/19 07:18 INR 1.08 (0.87-1.13) 12/14/19 07:18 APTT 25.1 Sec. (24.2-36.6) 12/14/19 07:18 Thrombin Time 16.4 Sec. (15.1-19.6) 12/14/19 07:18 Sodium 139 mmol/L (137-145) 12/15/19 13:09 Potassium 3.5 mmol/L (3.6-5.0) L 12/15/19 13:09 Chloride 103.7 mmol/L (98-107) 12/15/19 13:09 Carbon Dioxide 20 mmol/L (22-30) L 12/15/19 13:09 Anion Gap 19 mmol/L 12/15/19 13:09 BUN 12 mg/dL (7-17) 12/15/19 13:09 Creatinine 1.0 mg/dL (0.6-1.2) 12/15/19 13:09 Estimated GFR > 60 ml/min 12/15/19 13:09 BUN/Creatinine Ratio 12 % 12/15/19 13:09 Glucose 212 mg/dL (65-100) H 12/15/19 13:09 POC Glucose 240 (70-105) H 12/15/19 17:50 Calcium 9.1 mg/dL (8.4-10.2) 12/15/19 13:09 Phosphorus 1.90 mg/dL (2.5-4.5) L 12/14/19 11:29 Magnesium 2.00 mg/dL (1.7-2.3) 12/14/19 11:29 Total Creatine Kinase 297 units/L (30-135) H 12/14/19 07:18 CK-MB (CK-2) 1.5 ng/mL (0.0-4.0) 12/14/19 07:18 CK-MB (CK-2) Rel Index 0.5 (0-4) 12/14/19 07:18 Troponin T < 0.010 ng/mL (0.00-0.029) 12/14/19 07:18 Triglycerides 345 mg/dL (2-149) H 12/15/19 03:22 Cholesterol 165 mg/dL (50-199) 12/15/19 03:22 LDL Cholesterol Direct 99 mg/dL (50-130) 12/15/19 03:22 HDL Cholesterol 27 mg/dL (40-59) L 12/15/19 03:22 Cholesterol/HDL Ratio 6.11 % 12/15/19 03:22 Urine Color Straw (Yellow) 12/14/19 10:14 Urine Turbidity Clear (Clear) 12/14/19 10:14 Urine pH 6.0 (5.0-7.0) 12/14/19 10:14 Ur Specific Nelson 1.029 (1.003-1.030) 12/14/19 10:14 Urine Protein <15 mg/dl mg/dL (Negative) 12/14/19 10:14 Urine Glucose (UA) >=500 mg/dL (Negative) 12/14/19 10:14 Urine Ketones Neg mg/dL (Negative) 12/14/19 10:14 Urine Blood Lg (Negative) 12/14/19 10:14 Urine Nitrite Neg (Negative) 12/14/19 10:14 Urine Bilirubin Neg (Negative) 12/14/19 10:14 Urine Urobilinogen < 2.0 mg/dL (<2.0) 12/14/19 10:14 Ur Leukocyte Esterase Neg (Negative) 12/14/19 10:14 Urine WBC (Auto) 6.0 /HPF (0.0-6.0) 12/14/19 10:14 Urine RBC (Auto) > 6.0 /HPF (0.0-6.0) 12/14/19 10:14 U Epithel Cells (Auto) 3.0 /HPF (0-13.0) 12/14/19 10:14 Urine Bacteria (Auto) 1+ /HPF (Negative) 12/14/19 10:14 Urine Mucus Few /HPF 12/14/19 10:14 Urine Opiates Screen Presumptive negative 12/14/19 10:14 Urine Methadone Screen Presumptive negative 12/14/19 10:14 Ur Barbiturates Screen Presumptive negative 12/14/19 10:14 Ur Phencyclidine Scrn Presumptive negative 12/14/19 10:14 Ur Amphetamines Screen Presumptive negative 12/14/19 10:14 U Benzodiazepines Scrn Presumptive negative 12/14/19 10:14 Urine Cocaine Screen Presumptive negative 12/14/19 10:14 U Marijuana (THC) Screen Presumptive negative 12/14/19 10:14 Drugs of Abuse Note Disclamer 12/14/19 10:14 Plasma/Serum Alcohol < 0.01 % (0-0.07) 12/14/19 07:18 - Diagnostic Impressions Diagnostic Impressions: Echocardiogram 12/14/19 16:49 Transthoracic Echocardiogram Indication: CVA BP: 161/110 HR: 78 Conclusions *Global left ventricular systolic function is normal. *The estimated ejection fraction is 60-65%. *Moderate concentric left ventricular hypertrophy is observed. *The left atrium is mildly dilated. *There is trace of mitral regurgitation. *There is trace tricuspid regurgitation. *A patent foramen ovale is not demonstrated by agitated saline contrast. Findings Left Ventricle: The left ventricular chamber size is normal. Moderate concentric left ventricular hypertrophy is observed. Global left ventricular systolic function is normal. The estimated ejection fraction is 60-65%. Left Atrium: The left atrium is mildly dilated. Right Ventricle: The right ventricular cavity size is normal. The right ventricular global systolic function is normal. Right Atrium: The right atrial cavity size is normal. A patent foramen ovale is not demonstrated by agitated saline contrast. Aortic Valve: The aortic valve is trileaflet. The aortic valve leaflets are mildly thickened. There is no evidence of aortic regurgitation. There is no evidence of aortic stenosis. Mitral Valve: The mitral valve leaflets are mildly thickened. There is trace of mitral regurgitation. There is no evidence of mitral stenosis. Tricuspid Valve: The tricuspid valve leaflets are normal. There is trace tricuspid regurgitation. No pulmonary hypertension is noted. Pulmonic Valve: There is trace pulmonic regurgitation. Pericardium: There is no pericardial effusion. Aorta: There is no dilatation of the ascending aorta. There is no dilatation of the aortic root. Venous: The inferior vena cava appears normal in size. Contrast: Intravenous agitated saline contrast was used to assess intracardiac shunting. Measurements Chambers 2D Name Value Normal Range IVSd (2D) 1.34 cm (0.6 - 1.1) LVPWd (2D) 1.32 cm (0.6 - 1.1) LVIDd (2D) 4.63 cm (3.7 - 5.6) LVIDs (2D) 2.79 cm (2 - 3.8) LV FS (2D) 39.78 % - EF Teichholz (2D) 70.41 % - Ao root diameter (2D) 3.08 cm (2 - 3.7) Volumes/Mass Name Value Normal Range LA ESV SP 4CH (A/L) 29.3 ml - LA ESV SP 2CH (A/L) 36.18 ml - LA ESV BP (A/L) 32.76 ml - LA ESV SP 4CH (MOD) 27.01 ml - LA ESV SP 2CH (MOD) 34.49 ml - Diastolic/Systolic Function Name Value Normal Range MV E-wave Vmax 0.78 m/sec - MV deceleration time 223.66 msec - MV A-wave Vmax 0.85 m/sec - MV E:A ratio 0.92 ratio - Aortic Valve Name Value Normal Range AV Vmax 1.63 m/sec - AV VTI 27.79 cm - AV peak gradient 10.57 mmHg - AV mean gradient 5.02 mmHg - LVOT diameter 2.02 cm - LVOT Vmax 1.33 m/sec - LVOT VTI 24.01 cm - LVOT peak gradient 7.12 mmHg - LVOT mean gradient 3.97 mmHg - SV LVOT 76.66 ml - MARIAN (continuity Vmax) 2.62 cm2 - MARIAN (continuity VTI) 2.76 cm2 - Tricuspid Valve Name Value Normal Range TR Vmax 2.36 m/sec - TR peak gradient 22.27 mmHg - Pulmonic Valve/Qp:Qs Name Value Normal Range PV Vmax 1.32 m/sec - PV peak gradient 6.99 mmHg - PV acceleration time 110.37 msec - Miner/IV: Voiding Method Toilet IV Catheter Type [Upper arm] INT / Saline Lock IV Catheter Type [Right INT / Saline Lock Antecubital] Active Medications - Current Medications Current Medications: Generic Name Dose Route Start Last Admin Trade Name Freq PRN Reason Stop Dose Admin Aspirin 325 mg 12/15/19 10:00 12/15/19 10:02 Ecotrin PO 325 mg QDAY CRUZITO Administration Atorvastatin Calcium 40 mg 12/14/19 22:00 12/14/19 22:34 Lipitor PO 40 mg QHS CRUZITO Administration Clonidine HCl 0.1 mg 12/15/19 22:00 Catapres PO Q12HR CRUZITO Enoxaparin Sodium 40 mg 12/15/19 10:00 12/15/19 10:02 Enoxaparin SUB-Q 40 mg QDAY@1000 CRUZITO Administration Hydralazine HCl 50 mg 12/15/19 18:00 12/15/19 17:58 Apresoline PO Not Given Q8HR CRUZITO Hydrochlorothiazide 25 mg 12/16/19 10:00 Hctz PO QDAY CRUZITO Sodium Chloride 1,000 mls @ 100 mls/hr 12/14/19 13:15 12/15/19 10:40 Nacl 0.9% 1000 Ml IV 100 mls/hr DIRECT CRUZITO Administration Potassium Chloride/Dextrose/Sod Cl 20 meq in 1,000 mls @ 125 mls/hr 12/14/19 22:00 12/14/19 22:21 D5w/0.45% Nacl/Kcl 20 Meq IV 125 mls/hr DIRECT CRUZITO Administration Insulin Human Isoph/Insulin Regular 8 unit 12/15/19 08:00 12/15/19 17:54 Humulin 70/30 SUB-Q 8 unit BIDDIAB CRUZITO Administration Insulin Human Lispro 0 unit 12/15/19 11:30 12/15/19 12:35 Humalog SUB-Q 3 unit ACHS CRUZITO Administration Protocol Levetiracetam 750 mg 12/15/19 22:00 Keppra PO BID CRUZITO Lorazepam 2 mg 12/14/19 13:12 Ativan IV Q1H PRN Seizures Nutrition/Malnutrition Assess - Dietary Evaluation Nutrition/Malnutrition Findings: Nutrition Notes Start: 12/15/19 09:11 Freq: Status: Active Protocol: Document 12/15/19 09:11 LM (Rec: 12/15/19 09:12 LM [id number]) Nutrition Notes Need for Assessment generated from: MD Order Initial or Follow up Brief Note Subjective/Other Information MD consult for diet education. Pt in ED. Nutrition Intervention Follow-Up By: 12/16/19 Additional Comments F/U for diet education
[2019-12-15] MEDS: cloNIDine 0.1 MG TAB PO SCH (22:06)
[2019-12-15] MEDS: levETIRAcetam 500 MG/5 ML ORAL LIQD PO SCH (22:06)
[2019-12-16] MEDS: hydrALAZINE 25 MG TAB PO SCH ×2 (05:42→13:40)
[2019-12-16 08:10] LABS: Alanine Aminotransferase 21 units/L (7-56); Albumin 3.6 g/dL (3.9-5); BUN/Creatinine Ratio 12; Blood Urea Nitrogen 12 mg/dL (7-17); Hemolysis Index 4
[2019-12-16] MEDS: INSULIN NPH/REGULAR 70/30 INJ SUB-Q SCH (08:20)
[2019-12-16] MEDS: INSULIN LISPRO 100 UNIT/ML VIAL 3 mL SUB-Q SCH ×3 (08:20→16:54)
[2019-12-16] MEDS: ASPIRIN EC 325 MG TAB PO SCH (09:43)
[2019-12-16] MEDS: levETIRAcetam 500 MG/5 ML ORAL LIQD PO SCH (09:43)
[2019-12-16] MEDS: cloNIDine 0.1 MG TAB PO SCH (09:43)
[2019-12-16] MEDS: ENOXAPARIN 40 MG/0.4 ML INJ SUB-Q SCH (09:43)
[2019-12-16] MEDS ORDERED: hydroCHLOROthiazide 25 MG TAB PO SCH (10:00)
[2019-12-16] MEDS ORDERED: NON-FORMULARY EACH (Hctz 25 MG) PO SCH (10:00)
[2019-12-16] MEDS ORDERED: POTASSIUM CHLORIDE ER 20 MEQ TAB PO ONE (13:00)
--- NOTE | 2019-12-16 15:58 | Discharge Summary ---
Providers - Providers Date of Admission: 12/14/19 10:08 Date of discharge: 12/16/19 Attending physician: JOJO COHEN 12/14/19 11:23 Consult to Dietitian/Nutrition [CONS] Routine Physician Instructions: Reason For Exam: DKA Reason for Consult: Nutrition Recommendations Reason for Consult: Diet education 12/14/19 18:58 Occupational Therapy Evaluate and Treat [CONS] Routine Comment: Reason For Exam: Acute CVA Physical Therapy Evaluation and Treat [CONS] Routine Comment: Reason For Exam: CVA 12/15/19 10:32 Consult to Physician [CONS] Routine Comment: Consulting Provider: KILEY CONTRERAS Physician Instructions: Reason For Exam: New onset seizure/slurred speech/CVA Primary care physician: EAR NOSE THROAT SURGEON Hospitalization Condition: Stable Hospital course: --Seizures; new onset s/p loading dose of Keppra, Keppra 750 twice a day, Seizure precautions, do not drive until cleared by PMD or neurology MRI brain, no acute findings Outpatient EEG, neurology evaluation noted and appreciated --Possible acute CVA; not a candidate for TPA,per tel neuro Neuro work-up negative so far Acute CVA ruled out --Hyperosmolar hyperglycemia/DKA Improved insulin drip discontinued Transition to long-acting insulin, ADA diet Check hemoglobin A1c, follow electrolytes and adjust Diabetic education, diabetic diet education DC planning with home health nurse for disease monitoring --Hypokalemia; replace per protocol Monitor electrolytes --Acute kidney injury; resolved Secondary to ATN and vasomotor nephropathy Resolved, plenty oral fluids --New onset type 2 diabetes mellitus; Currently patient is on insulin drip Accu-Chek sliding scale coverage ADA diet We will transition to long-acting insulin when blood sugars are reasonable level. Novolin 70/30, monitor blood sugars and adjust as needed --DVT prophylaxis; Lovenox Closely monitor patient and adjust management as needed Downgrade to medical floor Hemodynamically and clinically stable at discharge Disposition: MA-01 TO HOME OR SELFCARE Time spent for discharge: 32 min Core Measure Documentation - Palliative Care Palliative Care/ Comfort Measures: Not Applicable - Core Measures Any of the following diagnoses?: none Exam - Constitutional Vitals: Temp Pulse Resp BP Pulse Ox 98.1 F 59 L 19 144/83 99 12/16/19 11:46 12/16/19 11:46 12/16/19 11:46 12/16/19 11:46 12/16/19 11:46 General appearance: Present: no acute distress, well-nourished - EENT Eyes: Present: PERRL, EOM intact - Neck Neck: Present: supple, normal ROM - Respiratory Respiratory effort: normal Respiratory: bilateral: diminished, rales, rhonchi - Cardiovascular Rhythm: regular Heart Sounds: Present: S1 & S2 - Extremities Extremities: no ischemia, No edema - Abdominal General gastrointestinal: Present: soft, non-tender, non-distended, normal bowel sounds - Integumentary Integumentary: Present: clear, warm - Musculoskeletal Musculoskeletal: strength equal bilaterally - Psychiatric Psychiatric: appropriate mood/affect, cooperative - Neurologic Neurologic: moves all extremities Plan Activity: advance as tolerated, no driving until cleared by PCP, fall precautions, other (Seizure precautions) Diet: diabetic Additional Instructions: If you have worsening symptoms contact MD or go to emergency room. Advised to see private neurologist in 1 week. Advised to see private director global in [address] cleared by PMD or neurology. Seizure precautions Follow up with: PRIMARY CAREMD [Primary Care Provider] - 3-5 Days PRANEETH LOVE MD [Staff Physician] - 7 Days SO ZUNIGA MD [Staff Physician] - 14 Days Prescriptions: amLODIPine 10 mg PO DAILY #30 cloNIDine [Catapres] 0.1 mg PO Q12HR #60 tablet Aspirin EC [Ecotrin] 325 mg PO QDAY #30 tablet hydroCHLOROthiazide [HCTZ] 25 mg PO QDAY #30 tablet Insulin Lispro [Humalog] 3 unit SUB-Q ACHS #2 vial hydrALAZINE 50 mg PO TID #90 levETIRAcetam [Keppra TAB] 750 mg PO BID #60 tablet AtorvaSTATin [Lipitor] 40 mg PO QHS #30 tablet lisinopriL 20 mg PO DAILY #30 Insulin NPH/Regular [NovoLIN 70/30] 22 unit SUB-Q BIDDIAB #2 vial Other Discharge Orders: Glucometer (Amb) Location: None Selected Glucometer supplies[Amb] Location: None Selected
[2019-12-16 16:57] VITALS: BP 128/79
[2019-12-16] MEDS ORDERED: INSULIN NPH/REGULAR 70/30 INJ SUB-Q SCH (17:00)
== END 2019-12-16 17:26 | disposition home or self-care (01) ==
LOC: ED 06:23 → 4A 10:08 → CC1 12:07 → 3A 12-15 08:24
PROVIDERS: ADMIT Internal Medicine; ATTEND Internal Medicine
DX: I63.9 Cerebral infarction, unspecified (principal); E87.6 Hypokalemia; N17.9 Acute kidney failure, unspecified; I10 Essential (primary) hypertension; E11.65 Type 2 diabetes mellitus with hyperglycemia; R56.9 Unspecified convulsions; R29.717 NIHSS score 17; Z79.82 Long term (current) use of aspirin; Z98.891 History of uterine scar from previous surgery; Z79.4 Long term (current) use of insulin; Z86.73 Personal history of transient ischemic attack (TIA), and cerebral infarction without residual deficits; Z79.899 Other long term (current) drug therapy
CPT/HCPCS: 36415; 70450; 70551; 71045; 80048; 80053; 80061; 80307; 81001; 82550; 82553; 82947; 82962; 83036; 83735; 84100; 84484; 85025; 85610; 85670; 85730; 93005; 93306; 93880; 96361; 96365; 96366; 96367; 96368; 96372; 96375; 97161; 97165; 99291; A9270; G0378; J1650; J1953; J2060; J7030; J7040; 80320; G0480; J1815

== ENCOUNTER 2020-11-26 23:07 | Emergency (ER) | payer SELFPAY ==
[2020-11-27] MEDS ORDERED: ONDANSETRON 4 MG ODT TAB ONE (00:24)
[2020-11-27] MEDS ORDERED: ONDANSETRON 4 MG ODT TAB PO ONE (00:27)
[2020-11-27 01:15] LABS: Basophils # (Auto) 0.1 K/mm3 (0.0-0.1); Basophils % (Auto) 1.1 % (0.0-1.8); Eosinophils # (Auto) 0.2 K/mm3 (0.0-0.4); Eosinophils % (Auto) 1.3 % (0.0-4.3); Hematocrit 36.1 % (30.3-42.9); Hemoglobin 12.1 gm/dl (10.1-14.3); Lymphocytes # (Auto) 2.6 K/mm3 (1.2-5.4); Mean Corpuscular HGB Conc 34 % (30-34); Mean Corpuscular Volume 76 fl (79-97); Monocytes # (Auto) 0.5 K/mm3 (0.0-0.8); Monocytes % (Auto) 4.7 % (0.0-7.3); Platelet Count 395 K/mm3 (140-440); Red Blood Count 4.73 M/mm3 (3.65-5.03); Red Cell Distribution Width 16.5 % (13.2-15.2)
[2020-11-27 01:23] LABS: Alanine Aminotransferase 25 units/L (7-56); Albumin 4.3 g/dL (3.9-5); BUN/Creatinine Ratio 8; Blood Urea Nitrogen 7 mg/dL (7-17); Calcium 9.4 mg/dL (8.4-10.2); Hemolysis Index 36
[2020-11-27] MEDS ORDERED: ACETAMINOPHEN 500 MG TAB ONE (03:21)
[2020-11-27] MEDS ORDERED: ACETAMINOPHEN 500 MG TAB PO ONE (03:30)
[2020-11-27] MEDS ORDERED: hydrALAZINE 20 MG/1 ML INJ IV ONE (03:44)
--- NOTE | 2020-11-27 03:50 | Emergency Department Report ---
ED General Adult HPI - General Chief complaint: Nausea/Vomiting/Diarrhea Stated complaint: THROWING UP HEAD HURT TROUBLE BREATHING PUI?: No Time Seen by Provider: 11/27/20 03:33 Source: patient Mode of arrival: Ambulatory Limitations: No Limitations - History of Present Illness Initial comments: Patient is a 35-year-old female who presents emergency with complaints of headache, nausea vomiting, elevated blood pressure. Patient states 5 PM yesterday she developed a headache and then started having nausea and vomiting. Patient has not been able to take her blood pressure medications. P patient states she ran out of her clonidine 0.3 mg. Patient states she takes 0.3 mg of clonidine 3 times a day.. Patient states her headache is worsening. Patient is a headache is a 4 out of 10. Patient states the headache is better with rest and worse with movement. Patient denies blurry vision. Patient denies fever and chills. Patient denies neck stiffness. Patient denies loss of consciousness. Patient denies blood in her vomitus. Patient states that she vomited 3 or 4 times. Patient denies diarrhea. Patient denies abdominal pain. Patient denies chest pain. Patient denies recent travel. Patient denies recent international travel. Patient denies exposure to the novel coronavirus. Patient denies sick contacts. Patient denies fever and chills. Patient denies cough. Patient denies diarrhea. Patient denies coming in contact with anybody with symptoms of the novel coronavirus. -: Sudden Location: head Severity scale (0 -10): 4 Quality: stabbing Consistency: constant Improves with: rest Worsens with: movement Associated Symptoms: nausea/vomiting. denies: confusion, chest pain, cough, diaphoresis, fever/chills, headaches, loss of appetite, malaise, rash, seizure, shortness of breath, syncope, weakness - Related Data Home Medications Medication Instructions Recorded Confirmed Last Taken HCTZ 25 mg PO DAILY 12/14/19 12/14/19 Unknown Previous Rx's Medication Instructions Recorded Last Taken Type Aspirin EC [Ecotrin] 325 mg PO QDAY #30 tablet 12/16/19 Unknown Rx AtorvaSTATin [Lipitor] 40 mg PO QHS #30 tablet 12/16/19 Unknown Rx Insulin Lispro [Humalog] 3 unit SUB-Q ACHS #2 vial 12/16/19 Unknown Rx Insulin NPH/Regular [NovoLIN 70/30] 22 unit SUB-Q BIDDIAB #2 vial 12/16/19 Unknown Rx amLODIPine 10 mg PO DAILY #30 12/16/19 Unknown Rx hydrALAZINE 50 mg PO TID #90 12/16/19 Unknown Rx hydroCHLOROthiazide [HCTZ] 25 mg PO QDAY #30 tablet 12/16/19 Unknown Rx levETIRAcetam [Keppra TAB] 750 mg PO BID #60 tablet 12/16/19 Unknown Rx lisinopriL 20 mg PO DAILY #30 12/16/19 Unknown Rx cloNIDine [Catapres] 0.3 mg PO TID #60 tablet 11/27/20 Unknown Rx Allergies Allergy/AdvReac Type Severity Reaction Status Date / Time amoxicillin Allergy Itching Verified 12/14/19 06:44 ED Review of Systems ROS: Stated complaint: THROWING UP HEAD HURT TROUBLE BREATHING Other details as noted in HPI Constitutional: denies: chills, fever Eyes: denies: eye pain, eye discharge, vision change ENT: denies: ear pain, throat pain Respiratory: denies: cough, shortness of breath, wheezing Cardiovascular: denies: chest pain, palpitations Endocrine: no symptoms reported Gastrointestinal: as per HPI, nausea, vomiting. denies: abdominal pain, diarrhea Genitourinary: denies: urgency, dysuria, discharge Musculoskeletal: denies: back pain, joint swelling, arthralgia Skin: denies: rash, lesions Neurological: as per HPI, headache. denies: weakness, paresthesias Psychiatric: denies: anxiety, depression Hematological/Lymphatic: denies: easy bleeding, easy bruising ED Past Medical Hx - Past Medical History Previous Medical History?: Yes Hx Hypertension: Yes Hx CVA: Yes Hx Diabetes: Yes Hx Seizures: Yes - Surgical History Past Surgical History?: Yes Additional Surgical History: - Family History Family history: no significant - Social History Smoking Status: Never Smoker Substance Use Type: None - Medications Home Medications: Home Medications Medication Instructions Recorded Confirmed Last Taken Type HCTZ 25 mg PO DAILY 12/14/19 12/14/19 Unknown History Aspirin EC [Ecotrin] 325 mg PO QDAY #30 tablet 12/16/19 Unknown Rx AtorvaSTATin [Lipitor] 40 mg PO QHS #30 tablet 12/16/19 Unknown Rx Insulin Lispro [Humalog] 3 unit SUB-Q ACHS #2 vial 12/16/19 Unknown Rx Insulin NPH/Regular [NovoLIN 70/30] 22 unit SUB-Q BIDDIAB #2 vial 12/16/19 Unknown Rx amLODIPine 10 mg PO DAILY #30 12/16/19 Unknown Rx hydrALAZINE 50 mg PO TID #90 12/16/19 Unknown Rx hydroCHLOROthiazide [HCTZ] 25 mg PO QDAY #30 tablet 12/16/19 Unknown Rx levETIRAcetam [Keppra TAB] 750 mg PO BID #60 tablet 12/16/19 Unknown Rx lisinopriL 20 mg PO DAILY #30 12/16/19 Unknown Rx cloNIDine [Catapres] 0.3 mg PO TID #60 tablet 11/27/20 Unknown Rx ED Physical Exam - General Limitations: No Limitations General appearance: alert, in no apparent distress - Head Head exam: Present: atraumatic, normocephalic - Eye Eye exam: Present: normal appearance, PERRL Pupils: Present: normal accommodation - ENT ENT exam: Present: mucous membranes moist - Neck Neck exam: Present: normal inspection - Respiratory Respiratory exam: Present: normal lung sounds bilaterally. Absent: respiratory distress - Cardiovascular Cardiovascular Exam: Present: regular rate, normal rhythm, normal heart sounds. Absent: systolic murmur, diastolic murmur, rubs, gallop - GI/Abdominal GI/Abdominal exam: Present: soft, normal bowel sounds. Absent: tenderness - Extremities Exam Extremities exam: Present: normal inspection - Back Exam Back exam: Present: normal inspection - Neurological Exam Neurological exam: Present: alert, oriented X3, CN II-XII intact, normal gait. Absent: motor sensory deficit - Psychiatric Psychiatric exam: Present: normal affect, normal mood - Skin Skin exam: Present: warm, dry, intact, normal color. Absent: rash ED Course Vital Signs 11/27/20 11/27/20 11/27/20 00:23 03:29 04:00 Temperature 98.2 F Pulse Rate 123 H Respiratory 20 18 Rate Blood Pressure Blood Pressure 231/159 270/130 [Right] O2 Sat by Pulse 99 Oximetry 11/27/20 11/27/20 04:09 05:07 Temperature Pulse Rate 120 H 120 H Respiratory Rate Blood Pressure 206/156 192/112 Blood Pressure [Right] O2 Sat by Pulse Oximetry - Reevaluation(s) Reevaluation #1: Patient will be connected to the threat monitoring analyst. Patient will have an saline lock placed. Patient will be given IV hydralazine. 11/27/20 03:49 Reevaluation #2: Patient states she is feeling better. Patient states her nausea has resolved. Patient states the headache is resolved. We are still trying to get the patient's blood pressure down. 11/27/20 04:22 Reevaluation #3: Patient's blood pressure is dramatically better. We will give the patient a dose of metoprolol and prepared the patient for discharge. I discussed all results and clinical findings with patient. I discussed plan of care with patient. Patient agrees with plan of care. Patient is stable for discharge. Patient will be discharged home. Patient given discharge instructions. Patient voiced understanding of discharge instructions. 11/27/20 06:02 ED Medical Decision Making - Lab Data Result diagrams: 11/27/20 00:28 11/27/20 00:28 - EKG Data -: EKG Interpreted by Me EKG shows normal: sinus rhythm, axis, intervals, QRS complexes, ST-T waves Rate: tachycardia - Medical Decision Making Patient is a 35-year-old female who presents emergency room for headache, nausea, vomiting, elevated blood pressure. Patient ran out of her clonidine. Patient states that when she runs out of her clonidine she has headache and the similar symptoms. Patient ran out 2 days ago. Patient had labs done which were essentially unremarkable Except for hypokalemia. Patient strictly hyperglycemia foods. Patient given hydralazine and Lopressor and her blood pressure actually improved. Patient given clonidine her blood pressure returned to a more acceptable level. Patient does not require further emergency medical service. Patient not require further inpatient services. Patient stable for discharge. Patient discharged home. Critical care time documented due to the multiple reassessments, prolonged time at the bedside, interpretation of diagnostics and labs. - Differential Diagnosis Hypertensive urgency, noncompliance, missed medication, nausea, headache Critical Care Time: Yes Critical care time in (mins) excluding proc time.: 35 Critical care attestation.: If time is entered above; I have spent that time in minutes in the direct care of this critically ill patient, excluding procedure time. Critical Care Time: 35 minutes ED Disposition Clinical Impression: Hypertensive urgency, Hypokalemia Headache Qualifiers: Headache type: unspecified Headache chronicity pattern: acute headache Intractability: not intractable Qualified Code(s): R51.9 - Headache, unspecified Nausea & vomiting Qualifiers: Vomiting type: unspecified Vomiting Intractability: non-intractable Qualified Code(s): R11.2 - Nausea with vomiting, unspecified Disposition: 01 HOME / SELF CARE / HOMELESS Is pt being admited?: No Does the pt Need Aspirin: No Condition: Stable Instructions: Nausea and Vomiting, Adult, [id number], Preventing Hypertension, Hypertension, Adult, [id number], Hypertension, Adult Additional Instructions: Patient to follow-up with primary care in 2 to 3 days. Patient to eat a low- salt diet. Patient eat a heart healthy diet. Patient to monitor blood pressure at home. Patient to keep a blood pressure log. Patient to take blood pressure log to all follow appointments.. Patient to rest. Patient to increase water. Patient to avoid blood pressure medications. Patient to take Tylenol as needed for pain. Patient to take meds as directed. Patient to return to the ER if condition worsens, changes or new symptoms arise. Prescriptions: cloNIDine [Catapres] 0.3 mg PO TID #60 tablet Time of Disposition: 06:04
[2020-11-27] MEDS ORDERED: METOPROLOL TARTRATE 5 MG/5 ML INJ IV ONE (04:56)
[2020-11-27 05:50] LABS: Bacteria,Urine 1+ /HPF (Negative); Bilirubin,Urine NEG (Negative); Blood,Urine SM (Negative); Color,Urine Yellow (Yellow); Mucus,Urine FEW /HPF; Urobilinogen,Urine < 2.0 mg/dL (<2.0)
[2020-11-27 05:51] LABS: Protein,Urine >500 mg/dL (Negative)
[2020-11-27] MEDS ORDERED: METOPROLOL TARTRATE 50 MG TAB PO ONE (06:03)
[2020-11-27] MEDS ORDERED: cloNIDine 0.2 MG TAB PO ONE (06:05)
[2020-11-27 07:17] VITALS: BP 179/105
--- NOTE | 2020-11-29 10:56 | Electrocardiograph Report ---
[facility] Test Date: 2020-11-27 Test Time: 02:49:39 Pat Name: ISSA JORDAN Department: Room: Gender: F Glacing Machine Tender: LAKSHMI : 1985 Requested By: ODALIS MANRIQUE III Order Number: [id number] Reading MD: Ulises Montoya Measurements Intervals [place] Rate: 106 P: 66 MD: 183 QRS: -4 QRSD: 93 T: 97 QT: 365 QTc: 486 Interpretive Statements Sinus tachycardia Probable left atrial enlargement LVH with secondary repolarization abnormality No previous ECG available for comparison Electronically Signed On 11-29-2020 10:55:46 EDT by Ulises Montoya
== END 2020-11-27 07:25 | disposition home or self-care (01) ==
LOC: ED 23:07
DX: I16.0 Hypertensive urgency (principal); E87.6 Hypokalemia; R51.9 Headache, unspecified; R11.2 Nausea with vomiting, unspecified; I10 Essential (primary) hypertension; E11.9 Type 2 diabetes mellitus without complications; Z88.0 Allergy status to penicillin; Z79.899 Other long term (current) drug therapy; Z98.890 Other specified postprocedural states; Z86.73 Personal history of transient ischemic attack (TIA), and cerebral infarction without residual deficits; Z86.69 Personal history of other diseases of the nervous system and sense organs
CPT/HCPCS: 36415; 80053; 81001; 85025; 93005; 96374; 96375; 99283; J0360; Q0162

== ENCOUNTER 2021-06-22 13:23 | Emergency (ER) | payer BC ==
[2021-06-22] MEDS ORDERED: SODIUM CHLORIDE 0.9% 1000 ML 1,000 ML IV ONE (14:22)
[2021-06-22] MEDS ORDERED: INSULIN REGULAR, HUMAN 100 UNITS/1 ML SUB-Q ONE (14:22)
--- NOTE | 2021-06-22 14:27 | Emergency Department Report ---
ED General Adult HPI - General Chief complaint: Hyperglycemia Stated complaint: HIGH BLOOD SUGAR Time Seen by Provider: 06/22/21 13:50 Source: EMS Mode of arrival: Stretcher Limitations: No Limitations - History of Present Illness Initial comments: Patient presented by ambulance secondary to elevated blood sugar. She states she just does not feel well. She has had hyperglycemia and hypertension. She does have a headache. She has had no nausea or vomiting. There is no diarrhea. She states her blood sugars been out of control. She has not taken medication in at least 1 to 2 days. She is never had diabetic ketoacidosis previously. She has been admitted before because of diabetes. Patient has no urinary symptoms. She has no cough or congestion. There is no hematemesis or coffee- ground emesis. She has had no sick contacts. - Related Data Home Medications Medication Instructions Recorded Confirmed Last Taken HCTZ 25 mg PO DAILY 12/14/19 12/14/19 Unknown Previous Rx's Medication Instructions Recorded Last Taken Type Aspirin EC [Ecotrin] 325 mg PO QDAY #30 tablet 12/16/19 Unknown Rx Insulin Lispro [Humalog] 3 unit SUB-Q ACHS #2 vial 12/16/19 Unknown Rx Insulin NPH/Regular [NovoLIN 70/30] 22 unit SUB-Q BIDDIAB #2 vial 12/16/19 Unknown Rx amLODIPine 10 mg PO DAILY #30 12/16/19 Unknown Rx hydrALAZINE 50 mg PO TID #90 12/16/19 Unknown Rx levETIRAcetam [Keppra TAB] 750 mg PO BID #60 tablet 12/16/19 Unknown Rx AtorvaSTATin [Lipitor] 40 mg PO QHS #30 tablet 06/22/21 Unknown Rx Lispro Insulin [HumaLOG] 3 unit SQ ACHS #10 ml 06/22/21 Unknown Rx cloNIDine [Catapres] 0.3 mg PO TID #60 tablet 06/22/21 Unknown Rx hydroCHLOROthiazide [HCTZ] 25 mg PO QDAY #30 tablet 06/22/21 Unknown Rx lisinopriL 20 mg PO DAILY #30 06/22/21 Unknown Rx Allergies Allergy/AdvReac Type Severity Reaction Status Date / Time amoxicillin Allergy Itching Verified 06/22/21 13:24 Penicillins AdvReac Unknown Verified 06/22/21 13:24 ED Review of Systems ROS: Stated complaint: HIGH BLOOD SUGAR Other details as noted in HPI Comment: All other systems reviewed and negative Constitutional: denies: fever Eyes: denies: vision change ENT: denies: throat pain Respiratory: denies: cough Cardiovascular: denies: chest pain Endocrine: denies: unexplained weight loss Gastrointestinal: as per HPI Genitourinary: denies: dysuria Musculoskeletal: denies: back pain Skin: denies: rash Neurological: denies: headache Hematological/Lymphatic: denies: easy bruising ED Past Medical Hx - Past Medical History Hx Hypertension: Yes Hx CVA: Yes Hx Diabetes: Yes Hx Seizures: Yes - Surgical History Additional Surgical History: - Family History Family history: diabetes, hypertension - Social History Smoking Status: Unknown if ever smoked - Medications Home Medications: Home Medications Medication Instructions Recorded Confirmed Last Taken Type HCTZ 25 mg PO DAILY 12/14/19 12/14/19 Unknown History Aspirin EC [Ecotrin] 325 mg PO QDAY #30 tablet 12/16/19 Unknown Rx Insulin Lispro [Humalog] 3 unit SUB-Q ACHS #2 vial 12/16/19 Unknown Rx Insulin NPH/Regular [NovoLIN 70/30] 22 unit SUB-Q BIDDIAB #2 vial 12/16/19 Unknown Rx amLODIPine 10 mg PO DAILY #30 12/16/19 Unknown Rx hydrALAZINE 50 mg PO TID #90 12/16/19 Unknown Rx levETIRAcetam [Keppra TAB] 750 mg PO BID #60 tablet 12/16/19 Unknown Rx AtorvaSTATin [Lipitor] 40 mg PO QHS #30 tablet 06/22/21 Unknown Rx Lispro Insulin [HumaLOG] 3 unit SQ ACHS #10 ml 06/22/21 Unknown Rx cloNIDine [Catapres] 0.3 mg PO TID #60 tablet 06/22/21 Unknown Rx hydroCHLOROthiazide [HCTZ] 25 mg PO QDAY #30 tablet 06/22/21 Unknown Rx lisinopriL 20 mg PO DAILY #30 06/22/21 Unknown Rx ED Physical Exam - General Limitations: No Limitations, Other (Pulse ox noted and normal) - Head Head exam: Present: atraumatic, normocephalic, normal inspection - Eye Eye exam: Present: normal appearance, PERRL, EOMI. Absent: scleral icterus - ENT ENT exam: Present: mucous membranes dry, normal external ear exam - Neck Neck exam: Present: normal inspection. Absent: meningismus - Respiratory Respiratory exam: Present: normal lung sounds bilaterally. Absent: respiratory distress - Cardiovascular Cardiovascular Exam: Present: regular rate, normal rhythm - GI/Abdominal GI/Abdominal exam: Present: soft. Absent: distended, tenderness - Extremities Exam Extremities exam: Present: normal capillary refill - Back Exam Back exam: Absent: CVA tenderness (R), CVA tenderness (L) - Neurological Exam Neurological exam: Present: alert, oriented X3, CN II-XII intact. Absent: motor sensory deficit - Psychiatric Psychiatric exam: Present: normal affect, normal mood - Skin Skin exam: Present: warm, dry ED Course Vital Signs 06/22/21 06/22/21 06/22/21 13:24 14:18 14:22 Temperature 98.5 F Pulse Rate 68 63 Respiratory 20 19 16 Rate Blood Pressure Blood Pressure 171/120 [Left] O2 Sat by Pulse 97 100 100 Oximetry 06/22/21 14:30 Temperature Pulse Rate 62 Respiratory 18 Rate Blood Pressure 161/108 Blood Pressure [Left] O2 Sat by Pulse 97 Oximetry - Reevaluation(s) Reevaluation #1: 06/22/21 14:24 EMS was met upon arrival. IV fluids and labs were ordered. Old records reviewed. Reevaluation #2: 06/22/21 16:56 Chemistries have been drawn. I do them from her peripheral IV after wasting. IV was flushed Reevaluation #3: 06/22/21 17:17 Chemistries were noted and the patient was discharged. ED Medical Decision Making - Lab Data Result diagrams: 06/22/21 15:20 06/22/21 16:15 Rhythm strip: Normal sinus rhythm without ectopy per monitor observe 10 seconds. - Medical Decision Making Patient presents with elevated blood sugar and uncontrolled diabetes. There was no evidence of diabetic ketoacidosis. There is no other metabolic derangement that would necessitate admission. She is hyperglycemic but this has stabilized. She will need ongoing treatment and medications. Potassium is slightly on the low side, and this can be managed with diet and outpatient follow-up. There is no evidence of dysrhythmia. She does not have intractable pain or vomiting. She was referred to her PCP for recheck. Critical Care Time: No Critical care attestation.: If time is entered above; I have spent that time in minutes in the direct care of this critically ill patient, excluding procedure time. ED Disposition Clinical Impression: Uncontrolled hypertension Uncontrolled diabetes mellitus Qualifiers: Diabetes mellitus type: type 1 Glycemic state: with hyperglycemia Qualified Code(s): E10.65 - Type 1 diabetes mellitus with hyperglycemia Disposition: HOME / SELF CARE / HOMELESS Is pt being admited?: No Condition: Stable Instructions: Diabetes Mellitus Type 2 in Adults (ED), Hypertension (ED), Complementary and Alternative Medical Therapies for Diabetes, Hyperglycemia, Hypertension, Adult, [id number], Managing Your Hypertension Additional Instructions: Drink plenty of water. Return for problems. Follow-up with your regular doctor or the referral physician for ongoing treatment and management. Do not eat salt. Do not eat carbohydrates. Decrease caffeine use. Prescriptions: AtorvaSTATin [Lipitor] 40 mg PO QHS #30 tablet cloNIDine [Catapres] 0.3 mg PO TID #60 tablet hydroCHLOROthiazide [HCTZ] 25 mg PO QDAY #30 tablet Lispro Insulin [HumaLOG] 3 unit SQ ACHS #10 ml lisinopriL 20 mg PO DAILY #30 Referrals: PRIMARY CAREMD [Referring] - 3-5 Days TALIA RANGEL MD [Staff Physician] - 3-5 Days
[2021-06-22 14:36] VITALS: BP 161/108
[2021-06-22 16:02] LABS: Hematocrit 34.6 % (30.3-42.9); Hemoglobin 11.3 gm/dl (10.1-14.3); Mean Corpuscular HGB Conc 33 % (30-34); Mean Corpuscular Volume 79 fl (79-97); Platelet Count 284 K/mm3 (140-440); Red Blood Count 4.37 M/mm3 (3.65-5.03); Red Cell Distribution Width 15.9 % (13.2-15.2)
[2021-06-22 16:09] LABS: BUN/Creatinine Ratio TNR; Blood Urea Nitrogen TNR mg/dL (7-17); Calcium TNR mg/dL (8.4-10.2); Hemolysis Index TNR
[2021-06-22] MEDS ORDERED: KETOROLAC 30 MG/1 ML INJ IV ONE (16:38)
[2021-06-22 17:12] LABS: BUN/Creatinine Ratio 17; Blood Urea Nitrogen 17 mg/dL (7-17); Calcium 10.3 mg/dL (8.4-10.2); Hemolysis Index 14
== END 2021-06-22 17:38 | disposition home or self-care (01) ==
LOC: ED 13:23
DX: E11.65 Type 2 diabetes mellitus with hyperglycemia (principal); I10 Essential (primary) hypertension; Z86.73 Personal history of transient ischemic attack (TIA), and cerebral infarction without residual deficits; G40.909 Epilepsy, unspecified, not intractable, without status epilepticus; Z98.890 Other specified postprocedural states; Z79.899 Other long term (current) drug therapy; Z88.0 Allergy status to penicillin; Z91.09 Other allergy status, other than to drugs and biological substances
CPT/HCPCS: 36415; 80048; 82805; 82962; 85027; 96361; 96372; 96374; 99284; J1885; J7030; Q0162; Q9967; J1815

== ENCOUNTER 2021-10-08 00:36 | Emergency (ER) | payer BC ==
[2021-10-08 00:43] VITALS: BP 154/93
== END 2021-10-08 00:45 | disposition left against medical advice (07) ==
LOC: ED 00:36
DX: I10 Essential (primary) hypertension (principal); Z53.21 Procedure and treatment not carried out due to patient leaving prior to being seen by health care provider